=== PATIENT | female | born 1980 | race Caucasian/White ===

== ENCOUNTER 2018-04-13 12:18 | Emergency (ER) | payer OTHER ==
[~2018-04-13] VITALS: Ht 167.6 cm; Wt 61.2 kg
[~2018-04-13 12:18] MED LIST: ACETAMINOPHEN-1 EAC1; ADVIL100 M2 PO; ALEVE220 MG PO; AMITRIPTYLINE H25 M2 PO; CELEXA40 MG PO; CYMBALTA60 MG; CYMBALTA60 MG PO; DOXYCYCLINE 10100 MG PO; FAMOTIDINE PO; FLEXERIL PO; HYDROCODONE-AP1 EAC6 PO; HYDROXYZINE HCL50 MG PO; IBUPROFEN 600600 M1 PO; IBUPROFEN 800800 M1 PO; LODINE XL400 MG PO; MINIPRESS2 MG; NEURONTIN 300300 M1 PO; NEURONTIN 400400 M1 PO; NEXIUM40 M2 PO; NOHOMEMEDICATIONS; NORCO 5-325 TA1 EACH PO; NORFLEX100 MG PO; ONDANSETRON HCL4 M2 PO; PENICILLIN V P500 MG PO; PENICILLIN VK500 M1 PO; PERCOCET 10-321 EACH PO; PRILOSEC 20 MG20 MG PO; SAPHRIS5 MG SL; ULTRAM 50MG TAB50 MG PO; VICODIN PO; WELLBUTRIN 100100 M1 PO; WELLBUTRIN XL300 M1 PO; XANAX; XANAX 0.5 MG0.5 MG PO; ZANAFLEX4 M1 PO; ZOFRAN4 MG PO; ZOLOFT 50 MG TA50 M1 PO; ZPAK PO
[2018-04-13 13:41] VITALS: BP 122/64
== END 2018-04-13 13:42 | disposition home or self-care (01) ==
LOC: M.ERS 12:18
DX: S81.011A Laceration without foreign body, right knee, initial encounter (principal); F41.9 Anxiety disorder, unspecified; Z98.890 Other specified postprocedural states; W29.8XXA Contact with other powered hand tools and household machinery, initial encounter; Y93.89 Activity, other specified; Y92.89 Other specified places as the place of occurrence of the external cause; Y99.8 Other external cause status

== ENCOUNTER 2020-03-25 14:44 | Emergency (ER) | payer OTHER ==
[~2020-03-25] VITALS: Ht 167.6 cm; Wt 61.2 kg
[2020-03-25 15:04] LABS: URINE BILIRUBIN NEGATIVE (Negative); URINE BLOOD TRACE (Negative); URINE CLARITY CLEAR; URINE COLOR YELLOW; URINE GLUCOSE-RANDOM NEGATIVE (Negative); URINE KETONES NEGATIVE (Negative); URINE LEUKOCYTES-REFLEX 1+ (Negative); URINE NITRITE-REFLEX NEGATIVE (Negative); URINE PROTEIN TRACE (Negative); URINE SPECIFIC GRAVITY >= 1.030 (1.005-1.030); URINE UROBILINOGEN 0.2 E.U./dl (0.2-1.0)
[2020-03-25 15:17] LABS: BACTERIA-REFLEX >30 Many /HPF (None Seen); SQUAMOUS >10 Many /LPF (0-3); URINE RBC 0-2 Rare /HPF (0-2); URINE WBC-REFLEX >25 Many /HPF (0-5)
[2020-03-25 15:32] LABS: ABSOLUTE EOSINOPHILS 0.1 thou/uL (0.0-0.7); ABSOLUTE LYMPHOCYTES 0.7 thou/uL (0.8-5.3); ABSOLUTE MONOCYTES 1.2 thou/uL (0.0-1.2); ABSOLUTE NEUTROPHILS 7.4 thou/uL (1.6-8.1); BASOPHILS 0.3 %; EOSINOPHILS 0.8 %; HEMATOCRIT 39.4 % (37.0-47.0); HEMOGLOBIN 13.5 gm/dL (12.0-15.0); MCH 29.8 pg (26.0-34.0); MCHC 34.2 g/dL (28.0-37.0); MCV 87.1 fL (80.0-100.0); MONOCYTES 12.3 %; MPV 8.1 fl. (7.2-11.1); NUCLEATED RBCS 0 /100WBC; PLATELET COUNT* 337 thou/uL (150-400); POLYS 78.6 %; RBC 4.52 mil/uL (4.20-5.00); RDW-CV 14.7 % (10.5-14.5); WBC 9.4 thou/uL (4.0-11.0)
[2020-03-25 15:40] LABS: CALCIUM 7.8 mg/dL (8.5-10.1); CREATININE 0.8 mg/dL (0.6-1.3)
[2020-03-25 15:40] LABS: CASTS None Seen /LPF (None Seen); CRYSTALS None Seen /LPF (None Seen)
[2020-03-25 15:45] LABS: ALBUMIN 3.2 g/dL (3.4-5.0); TOTAL BILIRUBIN 0.3 mg/dL (<0.1-1.0); TOTAL PROTEIN 7.2 g/dL (6.4-8.2)
[2020-03-25] MEDS ORDERED: CIPRO500 M1 PO (17:11)
[2020-03-25 17:20] VITALS: BP 128/72
== END 2020-03-25 17:20 | disposition home or self-care (01) ==
LOC: M.ERS 14:44
PROVIDERS: Physician Assistant
DX: N39.0 Urinary tract infection, site not specified (principal); N12 Tubulo-interstitial nephritis, not specified as acute or chronic; F41.9 Anxiety disorder, unspecified; Z98.890 Other specified postprocedural states; Z98.51 Tubal ligation status